=== PATIENT | male | born 1950 | race Caucasian/White ===

== ENCOUNTER 2016-09-21 10:12 | Inpatient (IN) ==
[2016-09-21] MEDS ORDERED: NS 1,000 ML IV ONE (11:55)
[2016-09-21] MEDS ORDERED: ZOFRAN IV ONE (11:55)
[2016-09-21] MEDS ORDERED: MORPHINE IV ONE (11:55)
--- NOTE | 2016-09-21 12:16 | PROVIDER DOCUMENTATION ---
This chart was entered by Suellen Humhpreys Scribe, acting as scribe for Eddie Burnett MD. HPI-Abdominal Pain/GI Problem - General Chief Complaint: Abdominal Pain Stated Complaint: SENT BY MD FOR FURTHER EVAL Time Seen by Provider: 09/21/16 10:48 Source: patient Allergies/Adverse Reactions: Patient Allergies Allergy/AdvReac Type Severity Reaction Status Date / Time No Known Allergies Allergy Verified 09/21/16 12:40 - History of Present Illness-ABD Nature of Presenting Problems: PT IS A 66YOM PRESENTING TO THE ED C/O ABD PAIN. PT STATES FOR THE PAST WEEK HE HAS HAD ABD PAIN WITH NAUSEA AND VOMITING. PT SAW PCP AND WAS GIVEN MEDS FOR CONSTIPATION. TODAY PAIN BECAME WORSE WITH THE N/V AND PCP ADVISED TO COME TO ED. PT STATES PAIN IS WORSE AFTER EATING. LOW GRADE FEVER STATED BY YESTERDAY. NO OTHER COMPLAINTS NOTED Abdominal Pain Onset Location: reports: [facility] Pain Radiation: reports: no radiation Quality of Pain: reports: aching, cramping Severity in ED: reports: moderate Onset/Duration: reports: 5 days ago Timing: reports: still present Activities at Onset: reports: light activity Exposure to sick contacts?: No Modifying Factors: improves with: nothing Associated Symptoms: reports: constipation, diarrhea, fever/chills, loss of appetite, nausea, vomiting, weakness. denies: chest pain, sinus congestion/ drainage, shortness of breath, swelling/mass in abdomen Last BM: this morning Dark Stools Present?: reports: none noticed Rectal Bleeding: reports: none Rectal Pain: reports: none Emesis Description: reports: none Bruising or Bleeding Gums?: No Similar Symptoms Previously?: No Recently seen or treated by another doctor?: No Review of Systems - Adult - REVIEW OF SYSTEMS - ADULT Constitutional: reports: see HPI, fever, fatique. denies: chills Eyes: reports: no symptoms reported Ears, Nose, Mouth & Throat: reports: no symptoms reported Cardiovascular: reports: no symptoms reported Respiratory: reports: no symptoms reported Gastrointestinal: reports: see HPI, abdominal pain, constipation, diarrhea, nausea, poor appetite, vomiting Genitourinary: reports: no symptoms reported Musculoskeletal: reports: no symptoms reported Integumentary: reports: no symptoms reported Neurological: reports: no symptoms reported Psychiatric: reports: no symptoms reported Endocrine: reports: no symptoms reported Hematologic/Lymphatic: reports: no symptoms reported Allergic/Immunologic: reports: no symptoms reported All Other Systems: Reviewed and Negative Past History - Adult - PAST MEDICAL HISTORY-ADULT Review of Records: reports: Old Records Reviewed, Nursing Assessment Review, Medications Reviewed, Social history reviewed & non-contributory. Major Childhood Illnesses: reports: denies history Cardiovascular: reports: denies history Respiratory: reports: denies history Gastrointestinal: reports: denies history Obstetrical/Gynecological: reports: denies history Genitourinary: reports: denies history Musculoskeletal: reports: denies history Neurological: reports: denies history Endocrine/Immune: reports: denies history Other Conditions: reports: denies history - IMMUNIZATION STATUS Childhood Immunizations: See Nurse Assessment Flu Vaccine: See Nurse Assessment - FAMILY HISTORY Family History: reviewed, not pertinent - SOCIAL HISTORY Smoking: denies, non-smoker Substance Use: none/never, denies Alcohol Use Frequency: never Living Situation: family Physical Exam-General - PHYSICAL EXAM-ADULT Initial Vital Signs Reviewed: Yes - CONSTITUTIONAL General Appearance: appears well, alert, mild distress. negative: no apparent distress - EYES Eyes: PERRL/EOMI, pink conjunctivae - HEAD, EARS, NOSE, MOUTH & THROAT HENMT: normocephalic/atraumatic, moist mucous membranes, normal ENT inspection, TMs normal, pharynx normal - NECK Neck: non-tender, full range of motion, supple, normal inspection - RESPIRATORY Respiratory: chest non-tender, lungs clear, normal breath sounds, no pleuratic chest pain, no respiratory distress, no accessory muscle use - CARDIOVASCULAR Cardiovascular: normal peripheral pulses, regular rate, rhythm, no edema, no gallop, no JVD, no murmur - GASTROINTESTINAL (ABDOMEN) Abdominal Exam: normal bowel sounds, soft, no organomegaly, no pulsatile mass, tenderness. negative: non tender - LYMPHATIC Lymphatic: no adenopathy - MUSCULOSKELETAL Back Exam: normal inspection, no CVA tenderness, no vertebral tenderness Extremity: normal range of motion, non-tender, normal gait, normal inspection, no pedal edema, no calf tenderness, normal capillary refill, pelvis stable - SKIN Integumentary: normal color, normal turgor, warm/dry - NEUROLOGIC Neurologic: stone hand II-XII nml as tested, grossly normal, no motor/sensory deficits - PSYCHIATRIC Psych/Mental Status: normal mood/affect, normal thought content, normal thought process, oriented x 3 Progress - PLAN OF CARE/RESULTS Progress/Plan/Lab Results: Vital Signs - 8 hr 09/21/16 10:17 Temperature 97.6 F Pulse Rate 83 Respiratory Rate 18 Blood Pressure 102/66 O2 Sat by Pulse Oximetry 100 Orders Category Date Time Status Saline Loc DIRECTED Care 09/21/16 10:49 Active NPO Diet 09/21/16 10:49 Active FLAT/UPRIGHT ABD/1 VIEW CHEST [RAD] Stat Exams 09/21/16 10:49 Ordered AMYLASE [CHEM] Stat Lab 09/21/16 10:49 Uncollected CBC WITH ELECTRONIC DIFF [HEME] Stat Lab 09/21/16 10:49 Uncollected COMPREHENSIVE METABOLIC PANEL [CHEM] Stat Lab 09/21/16 10:49 Uncollected LIPASE [CHEM] Stat Lab 09/21/16 10:49 Uncollected URINALYSIS W/POSS RFLX CULT-1 [URINALYSIS] Stat Lab 09/21/16 10:49 Uncollected Result Diagrams: 09/21/16 12:05 09/21/16 12:05 - CT/MRI 1 CT Study: Abdomen Impression: Abnormal CT Results: 4.3CM mass R upper pole of R kidney worrisome for neoplasm - CONSULTS/PCP/HOSPITALIST Notification Time Discussed: 14:52 Reason/Comments: Admit to Dr. Rangel Consult Disposition: Admit Departure - Departure Time of Disposition Decision: 14:58 DIAGNOSIS: Hyperkalemia, Renal mass Disposition: ADMITTED INPATIENT 09 Certified Medical Emergency: Emergent Condition: Stable Referrals and Follow-Ups: Billy Rangel MD [ACTIVE STAFF PHYSICIAN] - - Critical Care Note This patient required my direct & personal management of CC.: No This chart was documented by the indicated scribe, (Suellen Humphreys Scribe) and accurately reflects the services I performed and decisions made by me, Eddie Burnett MD, as attested by the provider's signature.
[2016-09-21 12:23] LABS: MANUAL DIFF NEEDED? NO
[2016-09-21 12:28] LABS: BASO% 1.1 % (0.0-0.8); EOS# 0.32 X1000 (0.0-0.7); EOS% 3.5 % (0.0-10.0); HEMATOCRIT 41.3 % (42.0-52.0); HEMOGLOBIN 14.3 g/dL (14.0-18.0); LYMPH# 2.45 X1000 (1.2-3.4); LYMPH% 26.6 % (20.5-51.1); MCH 31.8 PG (27-31); MCHC 34.6 g/dL (33-37); MONO# 1.13 X1000 (0.11-0.59); MONO% 12.3 % (1.7-9.3); MPV 9.9 FL (7.4-10.4); NEUT% 56.5 % (42.2-75.2); PLT 306 X1000 (130-400); RBC 4.49 XMIL (4.7-6.1)
--- NOTE | 2016-09-21 12:39 | Diag Imaging Result Document ---
PROCEDURE NAME: FLAT/UPRIGHT ABD/1 VIEW CHEST - 09/21/2016 PLAIN RADIOGRAPH OF THE CHEST AND ABDOMEN, 3 VIEWS: COMPARISON: None available. FINDINGS: There are nonspecific patchy bowel gas and stool patterns. There are a few small air- fluid levels seen in the colon and a few loops of small bowel. There is no significant distention to indicate a high-grade obstruction, however. There is no evidence of large-volume free abdominal gas. There is no definite organomegaly. The lungs are clear. The cardiac silhouette is unremarkable. IMPRESSION: Nonspecific abdomen.
[2016-09-21 13:10] LABS: AGAP 11; ALKALINE PHOSPHATASE 67 U/L (32-122); AMYLASE 107 U/L (20-200); BUN 27 mg/dL (8-22); CALCIUM 8.9 mg/dL (8.8-10.2); CHLORIDE 105 mmol/L (98-107); COSMO 273; GOT 13 U/L (10-34); GPT 9 U/L (10-44); LIPASE 74 U/L (13-60); SODIUM 134 mmol/L (136-145); TCO2 18 mmol/L (25-35); TOTAL BILIRUBIN 0.23 mg/dL (0.20-1.00); TOTAL PROTEIN 6.8 g/dL (6.3-8.3)
[2016-09-21 13:14] LABS: POTASSIUM 6.2 mmol/L (3.5-5.1)
[2016-09-21] MEDS ORDERED: D50W SYRINGE IV ONE (13:23)
[2016-09-21] MEDS ORDERED: HUMULIN R IV ONE (13:23)
[2016-09-21] MEDS ORDERED: CALCIUM GLUCONATE 1 GM in NS 50 ML IV ONE (13:39)
[2016-09-21 13:56] LABS: URINE CULTURE NEEDED? NO; URINE MICRO REVIEW NEEDED? NO; URINE SOURCE CLEAN CATCH
[2016-09-21 14:00] LABS: BILIRUBIN URINE NEGATIVE (NEGATIVE); BLOOD URINE NEGATIVE (NEGATIVE); COLOR STRAW; GLUCOSE URINE NEGATIVE (NEGATIVE); LEUKOCYTES URINE NEGATIVE (NEGATIVE); NITRITE URINE NEGATIVE (NEGATIVE); PROTEIN URINE NEGATIVE (NEGATIVE); SP GRAVITY URINE 1.003; TURBIDITY URINE CLEAR (CLEAR); UROBILINOGEN URINE NORMAL (NORMAL)
[2016-09-21 14:01] LABS: UR EPITHELIAL CELLS <10 /HPF (<10); URINE BACTERIA NEGATIVE /HPF; URINE RBC <10 /HPF (<10); URINE WBC <10 /HPF (<10)
--- NOTE | 2016-09-21 14:52 | Diag Imaging Result Document ---
PROCEDURE NAME: CT ABD/PELVIS W/ IV CONT ONLY - 09/21/2016 CT ABDOMEN AND PELVIS WITH IV CONTRAST: COMPARISON: None available. FINDINGS: There are a few tiny scattered hepatic hypodensities that probably represent miniscule cysts but are too small to accurately characterize. The liver is grossly unremarkable, otherwise. Near the upper pole of the right kidney, there is a solid appearing heterogeneous mass that measures 4.3 x 4.0 cm axially. This is probably mildly enhancing. It is possible that it represents a very complex cyst. Nonetheless, it is certainly suspicious for neoplasm. Also consider renal ultrasound. There are a few smaller hypodensities involving both kidneys that have more of a cystic appearance. There is a prominent duodenal diverticulum measuring up to 4.4 cm. The appendix is normal. The gallbladder appears normal. There is uncomplicated diverticulosis coli. Although there is patchy small bowel gas, there is no evidence of bowel obstruction. No focal inflammatory changes, free abdominal gas, or free fluid is appreciated. The remainder of the solid viscera of the abdomen and pelvis and the remainder of the GI tract is essentially unremarkable. There is extensive aortoiliac atherosclerotic disease with no evidence of aneurysm. There are degenerative changes involving the spine. The bony structures are grossly intact. IMPRESSION: 1. Suspicious heterogeneous mass at the upper pole of the right kidney worrisome for neoplasm. 2. Uncomplicated diverticulosis coli. 3. Nonspecific patchy small bowel gas. However, there is nothing specific for obstruction. 4. Other incidental/nonacute findings detailed above.
--- NOTE | 2016-09-21 14:58 | ED EKG INTERP ---
This chart was entered by Suellen Humphreys Scribe, acting as scribe for Eddie Burnett MD. EKG Interpretation - EKG Time of EKG reading by physician:: 13:27 EKG Read and Signed by:: Eddie Burnett EKG Interpretation (*Must complete 3 of following elements*): Abnormal Rate: 59 Rhythm: SB [place]: normal QRS: other (POSS INFERIOR INFARCT, AGE UNDETERMINED) This chart was documented by the indicated scribe, (Suellen Humphreys Scribe) and accurately reflects the services I performed and decisions made by me, Eddie Burnett MD, as attested by the provider's signature.
[2016-09-21] MEDS ORDERED: ZOFRAN IV PRN (18:25)
[2016-09-21] MEDS ORDERED: SODIUM CHLORIDE 0.9% INJ PRN (18:25)
[2016-09-21] MEDS ORDERED: PHENERGAN IV PRN (18:25)
--- NOTE | 2016-09-21 18:42 | HISTORY AND PHYSICAL ---
PRIMARY CARE PHYSICIAN: Gertrudis CORONA. CHIEF COMPLAINT: Abdominal pain, nausea, and vomiting. HISTORY OF PRESENT ILLNESS: Mr. Manning is a 66-year-old, male with a history of type 2 diabetes, hypertension, chronic pain, coronary artery disease, hyperlipidemia and CVA who presents with 2-3 weeks of abdominal pain, nausea, and vomiting. He describes right upper quadrant pain that is made worse with turning to the left. The pain is described as sharp and constant in nature made worse by eating. He reports that pretty much any time he eats about 1-2 hours later he will began to throw up. He is also reporting diarrhea. He reports perhaps a subjective fever yesterday but no overt fever or chills. He denies any chest pain or shortness of breath. He denies any hematemesis or hematochezia and he denies any hematuria although his does state that she saw what she thought was red urine in the toilet the other day. He came to the ER today for evaluation. His initial lab work showed a potassium of 6.[address] of the abdomen and pelvis shows suspicious heterogeneous mass at the upper pole of the right kidney worrisome for neoplasm. There were also a few smaller hypodensities involving both kidneys that have more of a cystic appearance. Otherwise CT was unremarkable. He does not have a white count. His vitals are stable. He is now going to be admitted for further treatment and evaluation. PAST MEDICAL HISTORY: 1. Diabetes mellitus. 2. Hypertension. 3. Chronic pain. 4. Coronary artery disease status post stenting. 5. Hyperlipidemia. 6. History of CVA. SURGICAL HISTORY: He has had multiple lumbar spine and neck surgeries. SOCIAL HISTORY: Patient smokes occasional cigars. He quit smoking 15 years ago. He denies alcohol or drug use. is at the bedside. FAMILY HISTORY: Mother with Alzheimer's disease. Father with lung cancer and also he had a history of hypertension and diabetes. REVIEW OF SYSTEMS: Fourteen-point review of systems obtained and found to be negative with the exception of the HPI. ALLERGIES: No known drug allergies. HOME MEDICATIONS: Aspirin 325 mg daily. Neurontin 300 mg p.o. t.i.d. Lisinopril 40 mg daily. Glucophage 500 mg b.i.d. Oxycodone every 6 hours as needed for pain. Zantac 150 mg b.i.d. Flomax 0.4 mg daily. PHYSICAL EXAMINATION: VITAL SIGNS: Blood pressure is 110/80, heart rate 65, respiratory rate 18, O2 saturation 100% on room air. Temperature is 97.6 degrees. GENERAL: Well developed, well nourished, male, lying in hospital bed. No acute distress. NEUROLOGIC: He is awake, alert, and oriented. Follows commands without focal deficits. HEENT: Head is atraumatic and normocephalic. His pupils are equal, round, and reactive to light. Oral mucosa is dry. Trachea is midline. No JVD. No carotid bruits. CHEST: Clear to auscultation bilaterally. CV: Regular rate and rhythm. S1, S2 is noted. No murmurs, gallops, clicks, rubs. GI: Soft, nondistended, nontender. Bowel sounds are positive. He does have some pain below the right posterior ribs to palpation. EXTREMITIES: Without edema, clubbing or cyanosis. Pulses palpable bilaterally. DIAGNOSTIC DATA: CT please see HPI. Abdomen x-ray, nonspecific abdomen. EKG normal sinus rhythm without acute ST or T abnormalities. WBC 9.22, hemoglobin 14.3, hematocrit 41.3, platelet count 306,000. Sodium 134. Repeat potassium 4.9. CO2 18. Anion gap 11. BUN 27, creatinine 1.1. Glucose 93, calcium 8.9, bilirubin 0.23. AST 13, ALT 9, alkaline phosphatase 67, albumin 4, lipase 74. UA is negative. ASSESSMENT AND PLAN: 1. Abdominal pain, nausea, vomiting and diarrhea: Differential diagnoses are broad and include acid reflux and peptic or duodenal ulcers, cholecystitis or cholelithiasis, gastroenteritis. We are going to obtain an abdominal ultrasound, to include the renals for evaluation of the right renal mass. Will keep him on clear liquids. We will hold off on antibiotics for now. We will continue IV fluids. 1. Right renal mass: Will consult Dr. Luna with Urology. Advanced imaging per Urology. 2. Diabetes mellitus: We will order a hemoglobin A1c and add pattern blood sugars sliding scale insulin. 3. Hyperkalemia: Resolved with treatment in the ER. Will continue to monitor electrolyte status closely. 4. Coronary artery disease: Patient denies any chest pain. We will monitor him on telemetry and check a hemoglobin A1c and lipid panel. 5. Chronic pain. We will continue his home medications. 6. DVT prophylaxis with Lovenox. Further recommendations to follow. Dictated by CJ Sanders for Simone Blackburn MD cc: CJ Sanders MD Kim Harbin, CRNP
--- NOTE | 2016-09-21 20:33 | Diag Imaging Result Document ---
PROCEDURE NAME: US ABDOMEN-COMPLETE - 09/21/2016 COMPARISON: No prior ultrasound is available for comparison. FINDINGS: The gallbladder appears normal with no stones, wall thickening, or pericholecystic fluid. The common bile duct is normal in diameter. The pancreas is obscured by bowel gas. The aorta and IVC are partially obscured. The visualized portions are unremarkable. The liver and spleen are unremarkable. There is a solid mass at the upper pole of the right kidney that was seen on a recent CT. It measures 4.5 x 4.8 x 4.1 cm. Although there is no significant internal Doppler flow, this is highly suspicious for neoplasm, likely renal cell carcinoma. Otherwise, the kidneys are unremarkable. IMPRESSION: 1. Highly suspicious right renal mass as described. 2. Normal-appearing gallbladder.
[2016-09-21] MEDS: NS 1,000 ML IV SCH (21:05)
[2016-09-21] MEDS: PROTONIX IV SCH (21:24)
[2016-09-21] MEDS: LOVENOX SUBQ SCH (21:24)
[2016-09-21] MEDS: PERCOCET-10 PO PRN (21:24)
[2016-09-21] MEDS: SODIUM CHLORIDE 0.9% INJ SCH (21:24)
[2016-09-22] MEDS: NS 1,000 ML IV SCH ×3 (01:51→15:16)
[2016-09-22] MEDS: PERCOCET-10 PO PRN ×2 (03:40→15:17)
[2016-09-22 06:55] LABS: HEMATOCRIT 37.7 % (42.0-52.0); HEMOGLOBIN 12.8 g/dL (14.0-18.0); MCH 31.6 PG (27-31); MCV 93.1 FL (81-99); MPV 10.2 FL (7.4-10.4); RBC 4.05 XMIL (4.7-6.1)
[2016-09-22 07:06] LABS: AGAP 6; BUN 19 mg/dL (8-22); CALCIUM 8.5 mg/dL (8.8-10.2); CHLORIDE 111 mmol/L (98-107); COSMO 277; SODIUM 138 mmol/L (136-145); TCO2 21 mmol/L (25-35)
[2016-09-22 07:21] LABS: POTASSIUM 5.8 mmol/L (3.5-5.1)
[2016-09-22] MEDS ORDERED: VELTASSA PO ONE (07:39)
[2016-09-22] MEDS: NEURONTIN PO SCH ×3 (10:42→18:51)
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
[2016-09-22 15:06] LABS: AGAP 9; BUN 15 mg/dL (8-22); CHLORIDE 107 mmol/L (98-107); COSMO 270; POTASSIUM 4.9 mmol/L (3.5-5.1); SODIUM 135 mmol/L (136-145); TCO2 19 mmol/L (25-35)
--- NOTE | 2016-09-22 16:49 | PROGRESS NOTE ---
DATE: 09/22/2016 SUBJECTIVE: This patient states that he is feeling much better. He is not complaining today of abdominal pain, nausea, vomiting, his potassium though is high again and he received a dose of Veltassa and decreased from 5.8 to 4.9, I have ordered uric acid and phosphorus for tomorrow. I will monitor. OBJECTIVE: Vital Signs: Temperature 98.5 degrees, pulse 59, respiratory rate 18, blood pressure 137/74, O2 saturation 100% on room air. HEENT: Head normocephalic. No trauma. PERRLA. Neck: Supple. No JVD. No masses. Central trachea. Chest: Clear to auscultation. No wheezing. No rales. Abdomen: Soft, obese, nontender, nondistended. No hepatosplenomegaly. Extremities: No edema. No clubbing. No cyanosis. Neurological: The patient is alert and oriented x3. No focal neurological deficits. LABORATORY: WBC 7.7, hemoglobin 12.8, hematocrit 37.7, platelets 269,000. Sodium 138, potassium 5.8 and decreased to 4.9 after treatment, chloride 111, bicarbonate 21, BUN 19, creatinine 1, glucose 81, calcium 8.5. ASSESSMENT AND PLAN: 1. Abdominal pain nausea, vomiting and diarrhea. This is getting much better. He is not complaining of abdominal pain at this moment and will continue to monitor. 2. Right renal mass. This is likely related to renal cell carcinoma. Dr. Luna evaluated this patient and he recommended to follow this patient as an outpatient shortly after discharge. He has offered a right robotic partial nephrectomy in the very near future. 3. Hyperkalemia, this patient today again presented with hyperkalemia that resolved with treatment, I will ask for phosphorus and uric acid for tomorrow, I will continue to monitor the potassium. He is on lisinopril which has been stopped. 4. History of coronary artery disease stable. He is not complaining of chest pain or shortness of breath. 5. Chronic pain. Continue with home medication. 6. Deep vein thrombosis prophylaxis. Continue with Lovenox. 7. Type 2 diabetes. Continue with sliding scale insulin. cc: Simone Blackburn MD
[2016-09-22] MEDS: PROTONIX IV SCH (18:51)
[2016-09-22] MEDS: LOVENOX SUBQ SCH (18:51)
[2016-09-22] MEDS: SODIUM CHLORIDE 0.9% INJ SCH (18:51)
[2016-09-23] MEDS: PERCOCET-10 PO PRN ×3 (03:23→17:06)
[2016-09-23 06:26] LABS: HEMATOCRIT 38.8 % (42.0-52.0); HEMOGLOBIN 13.1 g/dL (14.0-18.0); MCH 31.5 PG (27-31); MCHC 33.8 g/dL (33-37); MCV 93.3 FL (81-99); MPV 10.2 FL (7.4-10.4); RBC 4.16 XMIL (4.7-6.1)
[2016-09-23 06:54] LABS: CALCIUM 9.3 mg/dL (8.8-10.2); POTASSIUM 5.3 mmol/L (3.5-5.1)
[2016-09-23 07:27] LABS: URIC ACID 5.8 mg/dL (3.4-7.0)
[2016-09-23 07:32] LABS: HEMOGLOBIN A1C 5.6 % (4.8-6.0)
[2016-09-23] MEDS: NEURONTIN PO SCH ×3 (08:43→17:02)
--- NOTE | 2016-09-23 11:44 | CONSULTATION ---
DATE OF CONSULTATION: 09/23/2016 REASON FOR ADMISSION: Abdominal pain, nausea and vomiting, right renal mass, hyperkalemia. REASON FOR CONSULTATION: Persistent hyperkalemia. CONSULTING PHYSICIAN: Simone Blackubrn MD HISTORY OF PRESENT ILLNESS: This is a 66-year-old gentleman with type 2 diabetes, hypertension, coronary artery disease, who presented to the hospital after 2 to 3 weeks of abdominal pain, nausea and vomiting. The patient states that during that time, he had only been able to eat some scrambled eggs and buttermilk. He states that the pain was worse when eating. He would start vomiting about an hour afterward. He states that he went for a number of days with no bowel movement and then began having some diarrhea. Denied any bloody stools or dark , tarry stools during that time. He came to the emergency room for evaluation. Initially he had a potassium of 6.1. He was treated with IV insulin. His potassium came down to 4.9, went back up the next day to 5.8. He was treated with Veltassa. It then improved to 4.9 again but this morning is back up to 5.3, so we have been asked to see him. He currently has urine studies pending as well as stool for occult blood pending. The patient during his initial workup was noted to have a suspicious heterogeneous mass to the right kidney. He has been consulted by Dr. Luna who apparently plans for a partial nephrectomy in the near future as this mass has a high likelihood of being renal cell carcinoma. It was not determined that there was an emergent need for a partial nephrectomy during this hospitalization. The patient today states that he has been on clear liquids since he has been in the hospital. His blood sugars during this time have ranged anywhere from 81 to 93. He was on lisinopril 40 mg as a home medication; however, this has been stopped since being admitted. He is on no other medications that are known to increase potassium. PAST MEDICAL HISTORY: Diabetes type 2, hypertension, chronic pain, coronary artery disease, hyperlipidemia, history of CVA. PAST SURGICAL HISTORY: He has had cardiac stenting back in 2004. He has had lumbar and neck surgery. ALLERGIES: No known drug allergies. CURRENT MEDICATIONS: Lovenox, Neurontin, Zofran, Percocet, Protonix, Phenergan , sodium chloride. He has received 1 dose of Veltassa. FAMILY HISTORY: Lung cancer, hypertension, diabetes and Alzheimer's disease in a parent. SOCIAL HISTORY: Occasional will smoke a cigar but quit cigarette smoking 15 years ago. No ETOH or illicit drug use. He is . REVIEW OF SYSTEMS: See HPI. PHYSICAL EXAMINATION: Vital signs: Temperature is 98.3, pulse 60, respiratory rate 14, blood pressure 134/78. Intake is 2.8 L, output 1.1 L. General: This is a middle- aged gentleman resting in bed. He is awake and alert, in no acute distress. HEENT: Normocephalic and atraumatic. His conjunctivae are pink. PERRLA. His oral mucosa is moist. Dentition excellent. Neck is supple. Trachea midline. There is no JVD. Cardiovascular: Regular rate and rhythm. There is no murmur or gallop appreciated. Pulmonary: He has equal excursion. He has no increased work of breathing. He is clear bilaterally. Abdomen: Soft, nontender. Positive bowel sounds. : He is voiding without difficulty. Extremities: No cyanosis, clubbing or edema. He is moving all extremities. He has positive pulses. Integumentary: His skin is warm and dry without rash or lesion. Neurologic: Grossly nonfocal. DIAGNOSTIC DATA: WBC is 8.8, hemoglobin 13.1, hematocrit 38.8 and platelet count of 268. Sodium is 140, potassium 5.3, CO2 is 24, BUN is 14, creatinine 1.2. Imaging: He had abdominal ultrasound that indicated a solid mass at the right upper pole of the kidney 4 x 4 cm, otherwise unremarkable kidneys. Normal gallbladder. ASSESSMENT AND PLAN: 1. Hyperkalemia. Recent increase in his lisinopril dose. No symptoms of gi bleeding and he has bm's only every other day. Counseled about low-k diet. Hold sylvain until after discharge. Modest metabolic acidosis. May have early ckd with type IV RTA. 2. Renal mass. I agree with the plan for surgical management. Seen, data reviewed, discussed with Don Rodriguez on 09/23/16. I agree with the above assessment and plan of care. rg Dictated by CJ Arredondo for Oswaldo Logan MD cc: Oswaldo Logan MD [facility]
[2016-09-23] MEDS: NS 1,000 ML IV SCH (17:07)
[2016-09-23] MEDS: LOVENOX SUBQ SCH (17:53)
[2016-09-23] MEDS: SODIUM CHLORIDE 0.9% INJ SCH (17:53)
[2016-09-23] MEDS: PROTONIX IV SCH (17:53)
--- NOTE | 2016-09-23 18:58 | PROGRESS NOTE ---
DATE: 09/23/2016 SUBJECTIVE: This patient is feeling fine. He is not complaining today of abdominal pain, nausea or vomiting. His potassium though is high again. I will ask for a Nephrology consultation. OBJECTIVE: Vital Signs: Temperature 98.3 degrees, pulse 60, respiratory rate 14, blood pressure 134/78, O2 saturation 98 on room air. HEENT: Head normocephalic. No trauma. PERRLA. Neck: Supple. No JVD. No masses. Central trachea. Chest: Clear to auscultation. No wheezing. No rales. Abdomen: Soft, obese, nontender, nondistended. No hepatosplenomegaly. Extremities: No edema. No clubbing. No cyanosis. Neurological examination: The patient is alert and oriented x3. No focal neurological deficits. LABORATORY: WBC 8.8, hemoglobin 13.1, hematocrit 38.8, platelets 268,000. Sodium 140, potassium 5.3, chloride 107, bicarbonate 24, BUN 14, creatinine 1.2, glucose 92, calcium 9.3. ASSESSMENT: 1. Abdominal pain, nausea, vomiting, diarrhea. Resolved. 2. Right renal mass likely related renal cell carcinoma. Dr. Luna evaluated this patient and he recommended to follow this patient as an outpatient shortly after discharge. He has offered a right robotic partial nephrectomy in the very near future. 3. Hyperkalemia. Potassium today is again elevated. I asked for a Nephrology evaluation. We will monitor. 4. History of coronary artery disease. He is not complaining of chest pain or shortness of breath. We will continue to monitor. 5. Chronic pain. Continue with home medications. 6. DVT prophylaxis. Continue with Lovenox. 7. Type 2 diabetes. Continue with sliding scale insulin. PLAN: Overall this patient is doing good. This patient is being evaluated by the Nephrology Department. Hopefully this patient can be discharged tomorrow. He needs to follow up with Dr. Luna. This patient has a right renal mass likely secondary to renal cell cancer and he needs surgery. cc: Simone Blackburn MD
[2016-09-24] MEDS: PERCOCET-10 PO PRN ×2 (02:09→09:15)
[2016-09-24 06:18] LABS: HEMATOCRIT 36.9 % (42.0-52.0); HEMOGLOBIN 12.6 g/dL (14.0-18.0); MCH 31.7 PG (27-31); MCHC 34.1 g/dL (33-37); MCV 92.7 FL (81-99); MPV 10.2 FL (7.4-10.4); RBC 3.98 XMIL (4.7-6.1)
[2016-09-24 06:38] LABS: AGAP 10; BUN 12 mg/dL (8-22); CHLORIDE 105 mmol/L (98-107); COSMO 276; POTASSIUM 4.3 mmol/L (3.5-5.1); SODIUM 139 mmol/L (136-145); TCO2 24 mmol/L (25-35)
[2016-09-24] MEDS: NEURONTIN PO SCH ×2 (09:14→13:36)
--- NOTE | 2016-09-24 09:35 | PROGRESS NOTE ---
DATE: 09/24/2016 SUBJECTIVE: Patient is sitting up in bed, has no complaints, has been able to eat. OBJECTIVE: Vital signs: Temperature 98.0, pulse 56, respiratory rate 18, blood pressure 108/63. Intake 700 mL, output not measured. General: This is a gentleman sitting up in bed, in no acute distress, awake, alert, oriented x4. HEENT: Normocephalic, atraumatic. Oral mucosa moist. Neck: Supple, trachea midline. Cardiovascular: Regular rate and rhythm. No murmur or gallop appreciated. Pulmonary: He has equal excursion. He is clear bilaterally. He has no increased work of breathing. Abdomen: Soft, nontender. : Not inspected. He is voiding without difficulty. Extremities: There is no clubbing, cyanosis, or edema. Moving all extremities without difficulty. Integumentary: Skin is warm and dry without rash or lesion. LABORATORY DATA: WBC 7.6, hemoglobin 12.6. Sodium 139, potassium 4.3, CO2 of 24 , BUN 12, creatinine 1.0, calcium 9.0. ASSESSMENT AND PLAN: 1. Hyperkalemia, resolved. We will continue the patient on a low potassium diet and he needs to continue this as an outpatient. 2. New diagnosis--right renal mass likely related to renal cell carcinoma. He is being followed by Dr. Luna and has a tentative plan to come back to the hospital after discharge for an elective procedure. We will be glad to see the patient at that time, if needed. We have no further suggestions or recommendations on this patient. We will sign off at this time. Thank you for allowing us to participate in the care of this gentleman. Dictated by CJ Arredondo for Oswaldo Logan MD Seen, data reviewed, discussed with Don Rodriguez on 09/25/15. I agree with the above assessment and plan of care. cc: Oswaldo Logan MD [facility] SYSTEMIsaura
[2016-09-24] MEDS: NS 1,000 ML IV SCH (13:37)
[2016-09-24 14:46] VITALS: BP 140/76
--- NOTE | 2016-09-24 18:12 | PROGRESS NOTE ---
DATE: 09/24/2016 Mr. Manning reports doing better overnight. He denies pain, nausea, vomiting. He states he is ready to go home. OBJECTIVE: Vital Signs: T 98.2 degrees, P 50, BP 140/76. General: No acute distress. Abdomen: Nontender, nondistended. PERTINENT LABS: His hematocrit is 37, potassium is 4.3, creatinine is 1. ASSESSMENT AND PLAN: 66-year-old male with incidental finding of a large right renal solid mass. I have reviewed the logistics with the patient and he still wants to proceed with right robotic partial nephrectomy. We will plan on doing that on 10/02/2016. His questions were answered. Risks of the procedure were revisited. PLAN: 1. No further intervention needed at this hospitalization. 2. We will set him up for robotic right partial nephrectomy next Friday. 3. Please call with questions. cc: Dario Luna MD
--- NOTE | 2016-09-24 20:01 | DISCHARGE SUMMARY ---
ADMISSION DATE: 09/21/2016 DISCHARGE DATE: 09/24/2016 DATE OF ADMISSION: 09/21/2016. DATE OF DISCHARGE: 09/24/2016. CONSULTATIONS: 1. Dr. Luna with Genitourinary. 2. Dr. Logan with Nephrology. PERTINENT PROCEDURES: Abdomen and pelvis CT: Showed suspicious heterogeneous mass at the upper pole of the right kidney, worrisome for neoplasm, uncomplicated diverticulosis Abdominal ultrasound: 1. Highly suspicious for a right renal mass. 2. Normal-appearing gallbladder. DISCHARGE DIAGNOSES: 1. Abdominal pain. 2. Nausea, vomiting, diarrhea. Resolved. 3. Right renal mass, likely related to renal cell carcinoma. Dr. Luna has evaluated the patient and he recommended outpatient surgery for a right robotic partial nephrectomy. 4. Hyperkalemia. Evaluated by Nephrology. He will need to follow a low- potassium diet as well as continue this after discharge. The patient's lisinopril was held on admission, per Nephrology. His JACK (angiotensin converting enzyme) can be restarted at discharge. Resolved. 5. Coronary artery disease. Stable. 6. Chronic pain. Continue home medications. 7. Type 2 diabetes. Continue with home medications. HOSPITAL COURSE: Mr. Manning is a 66-year-old male with a history of: 1. Type 2 diabetes. 2. Hypertension. 3. Chronic pain. 4. Coronary artery disease. 5. Hyperlipidemia. 6. Cerebrovascular accident. Who presented with 2-3 weeks of abdominal pain, nausea, vomiting, and a right upper quadrant pain that is made worse by turning to the left. The pain was described as sharp and constant in nature and made worse by eating. He reports that he eats, and about 1-2 hours later, he will begin to throw up. Also reported diarrhea. He came to the emergency department to be evaluated. His initial lab work showed a potassium of 6.[address] of the abdomen and pelvis was suspicious for a heterogeneous mass at the upper pole of the right kidney, worrisome for a neoplasm. The patient was admitted for further evaluation and treatment with a consult for Urology with Dr. Luna, as well as Nephrology for continued hyperkalemia. His lisinopril was held. Dr. Luna discussed with the patient the mass was unlikely to contribute to nausea, vomiting, and diarrhea. It certainly could cause the abdominal discomfort, but not to the extent that the patient had described. Clinically, the patient has improved after being admitted for [address] Luna discussed with him about following up with him as an outpatient for a right robotic partial nephrectomy in the very near future. Nephrology saw the patient and counseled him about a low potassium diet and held his JACK until after discharge. His hyperkalemia resolved. He will continue on a low- potassium diet and continue this even after discharge. Dr. Monroe has assessed the patient and feels he is appropriate for discharge today. DISCHARGE LABS: Chem: Potassium at the day of his discharge was 4.3, BUN 12, creatinine 1.0. Vital signs: Temperature is 98 degrees, heart rate 56, respirations 18, blood pressure is 108/63, O2 is 99% on room air. DISCHARGE MEDICATIONS: 1. Aspirin 325 mg p.o. daily. 2. Neurontin 300 mg p.o. t.i.d. 3. Lisinopril 40 mg p.o. daily. 4. Glucophage 500 mg p.o. b.i.d. 5. Percocet 10 1 tablet p.o. every 6 hours p.r.n. 6. Zantac 150 mg p.o. b.i.d. 7. Flomax 0.4 mg p.o. daily. FOLLOWUP CARE: The patient is being discharged to home. He will need to follow up with Dr. Luna as an outpatient for a robotic partial right nephrectomy as well as his primary care physician, Gertrudis Rangel. The patient can return to the emergency department for any worsening of symptoms. DISCHARGE DIET: He will need to continue to follow a low-potassium diet. TIME SPENT: 35 minutes. Dictated by CJ Nieto for Mendel Alejandro MD cc: MD Gertrudis Mckeon CRNP MTDD
== END 2016-09-24 15:03 | disposition home or self-care (01) ==
LOC: ED 10:12 → SUATTDRO 17:28 → 4N 17:28
PROVIDERS: ATTEND Internal Medicine